=== PATIENT | female | born 1970 | race Native Hawaiian/Other Pacific Islander ===

== ENCOUNTER 2017-12-12 05:51 | Inpatient (IN) | payer OTHER ==
[2017-12-11 13:55] VITALS: BMI 20.5
[2017-12-12] MEDS ORDERED: Bupivacaine 0.25%-Epinephrine 1:200,000 (30 ml) Inj IJ ONE (07:27)
[2017-12-12] MEDS ORDERED: Sodium Chloride 0.9% 20 ML IV ONE (07:39)
[2017-12-12] MEDS ORDERED: Midazolam 2 MG/2 ML VIAL ONE (07:43)
[2017-12-12] MEDS ORDERED: Rocuronium 10 mg/ml (5 ml) ONE ×2 (07:43→09:05)
[2017-12-12] MEDS ORDERED: Propofol 10 mg/ml Inj (20 ML) ONE ×2 (07:43→08:43)
[2017-12-12] MEDS ORDERED: Lidocaine Hydrochloride 5 ML INJ ONE (07:43)
[2017-12-12] MEDS ORDERED: Succinylcholine Chloride 20 mg/ml Syr (5 ml) IV ONE (07:43)
[2017-12-12] MEDS ORDERED: Bupivacaine-Epi 0.5%-1:200,000 PF Inj IJ ONE (07:45)
[2017-12-12] MEDS: ceFAZolin 1 gm in NS 1 GM/100 ML BAG IVPB ONE ×2 (08:40→08:53)
[2017-12-12] MEDS ORDERED: Neostigmine Methylsulfate 3mg/3ml Syringe IV ONE (10:07)
--- NOTE | 2017-12-12 10:29 | PCM.SURG1 ---
Surgeon's Initial Post Op Note - Surgeon's Notes Surgeon: krista barber md Perfume Maker: saul franco Type of Anesthesia: General Endo, Local Pre-Operative Diagnosis: Chronic pelvic pain. Severe Dyparunia. Endomtrial polyps. Prolapse uterus Operative Findings: Endometriosis Stage III on posterior culdesac and pelvic side wall on left. Chronic pelvic pain. Severe Dyparunia. Endomtrial polyps. Prolapse uterus Post-Operative Diagnosis: Endometriosis Stage III. Chronic pelvic pain. Severe Dyparunia. Endomtrial polyps. Prolapse uterus Operation Performed: Total robotic hysterectomy bilateral salpingectomy. Uterosacroligament suspenssion. Excision of endometriosis. Lysis of adhesions Enterolysis. Diagnostic cystoscopy Specimen/Specimens Removed: Uterus, cervix and tubes and endometriosis Estimated Blood Loss: EBL {In ML}: 10 Blood Products Given: N/A Drains Used: No Drains Post-Op Condition: Good Date of Surgery/Procedure: 12/12/17 Time of Surgery/Procedure: 10:30
[2017-12-12] MEDS ORDERED: HYDROmorphone 0.5 mg/0.5 ml ISec IVP PRN (10:39)
--- NOTE | 2017-12-12 10:50 | PCM.OP ---
Operative Report - Operative Report Date of Surgery/Procedure: 12/12/17 Time of Surgery/Procedure: 10:47 Surgeon: Kiel Segovia MD Window Dresser: Ana JIMENES Anesthesia/Sedation: Gen with Et tube Pre-Operative Diagnosis: Chronic pelvic pain. Prolapse uterus. endometrial polyps. Abnormal uterine bleeding Post-Operative Diagnosis: Endometriosis Stage III. Chronic pelvic pain. Prolapse uterus. Endometrial polyps. Abnormal uterine bleeding. Pelvic adhesive disease Indication for Surgery: worsening pelvic pain and abnormal bleeding Operative Findings: significant peritoneal and bowel and bladder adhessions from prior C/S, right ovary adherent to pelvic side wall and anterior abdominal wall. normal left ovary, tubes significantly adherent to bowel and pelvic side wall. normal bladder anatomy and ureters efluxing urine freely. Procedure/Operation Description: 1. Total robotic hysterectomy bilateral salpingectomy. 2. Uterosacroligament suspenssion colpopexy. 3. Excision of endometriosis. 4. Enterolysis lyis of adhessions. 5. Diangostic cystoscopy. . DESCRIPTION OF OPERATION: This is a 47 years old female with symptomatic prolapse uterus, endometrial polyps, abnormal uterine bleeding, and urinary incontinence. The patient completed an extensive preoperative workup, which included an ultrasound, as well as a Pap smear, chemistry and hematology studies. The patient reported these symptoms and problems as debilitating, and adversely affecting her quality of life. Following a period of failed conservative management, and patient decision was made to proceed with a more invasive approach to address the above noted problems. A decision was finally made to proceed with a total robotic assisted hysterectomy, bilateral salpingectomy, and vaginal vault suspension. A detailed description of this robotic procedure was given to the patient, all indications, risks, benefits and alternative treatments were reviewed, and printed material was also given to the patient regarding robotic surgery. The patient elected to proceed with the proposed procedure fully understanding all the risks and benefits associated with this proposed robotic procedure. After proper consent was obtained from the patient was taken to the operating room, proper patient identification was completed. She was placed in dorsal lithotomy position; general anesthesia was induced without difficulty. Her legs were placed in adjustable Calin stirrups. Careful attention was placed to avoid hyper-flexion or hyper-rotation of the lower extremities at the hip and the knee joints. She was prepped and draped appropriately for robotic assisted hysterectomy and colposuspension. Liriano catheter was inserted under sterile conditions. A weighted speculum was placed in the vagina, anterior lip of cervix was grasped with a tenaculum, the cervix was mildly dilated and a V-care uterine manipulator was inserted through the cervix and secured. The weighted speculum and tenaculum were removed from the patient's vagina and attention was turned to the patient's abdomen. Local anesthetic solutions of 0.25% Marcaine with epinephrine were utilized to infiltrate the skin prior to all abdominal skin incisions. A total of 15 mL of 0.25% Marcaine was utilized throughout the procedure. While tenting the abdominal wall up, a Veress needle was inserted at a 45 degree angle. With CO2 insufflation, there was a drop in intraperitoneal pressure confirming correct placement. Insufflation was carried out to approximately 3 liters. A blunt robotic trocar and sleeve was introduced through the camera port in the midline, approximately 3 cm above the umbilicus. Then, using a 30-degree lens robotic scope, initial survey of the patient's abdomen revealed a bulky enlarged uterus, extensive pelvic and bowel adhesions throughout the pelvic cavity, adherent to fallopian tubes bilaterally , normal appearing ovaries. Multiple endometriosis lesions throughout the pelvic cavity closing destructive effect along the pelvic sidewall as well as the posterior cul-de-sac. Under direct visualization, 3 additional robotic ports were utilized for this procedure. The first one, approximately 5 cm superior to the superior iliac crest on the RIGHT, a second port was approximately 5 cm superior to the superior iliac crest on the LEFT, and a third one was approximately 8 cm RIGHT lateral of the camera port in the midline. All robotic ports were approximately 8 mm in length. An human resources executive assistant port was inserted approximately 8 cm LEFT lateral of the camera port, and the Versastep trocar and sleeve were introduced in the recommended fashion. A Veress and sheath were first introduced through a 1 cm incision, the Veress was removed and a trocar was introduced through the sheath and secured. Again, excellent visualization was noted confirming intraperitoneal placement. The placement of the trocars was all accomplished under careful and meticulous placement under direct visualization. Following the placement of all trocars, the da Anatoly robotic system was docked in a parallel side docking method without difficulty after the patient was placed in moderate Trendelenburg position and small bowel had been swept away out of the pelvis. The ureter was positively identified. The following instruments were utilized for this procedure: the bipolar cautery device, a monopolar mynor and finally a ProGrasp. Extensive and meticulous lysis of adhesions as well as lysis of bowel adhesions had to be completed prior to his hysterectomy. Pelvic anatomy was restored following extensive adhesions removal as well as release of tight bowel adhesions from the anterior abdominal wall as well as pelvic sidewall. Extensive bladder adhesions were also lysed. Multiple excision of endometriosis from the posterior cul-de-sac as well as the pelvic sidewall was completed utilizing sharp and blunt dissection, these lesions were labeled and sent to pathology. Due to the close proximity of these endometriosis anti-to descend study ureters, both ureters were explored following the opening of the retroperitoneum and exploring the ureters from the pelvic brim down towards the cervical uterine junction. Prior to the start of the hysterectomy, both ureters were visualized along the full course, peristalsis bilaterally. On the patient's right side, the utero-ovarian and the round ligaments were identified cauterized and transected, the broad ligament was divided all the way down to the utero cervical junction bladder flap was then created by transecting the visceroperitoneum over the bladder reflection. In a similar fashion, the left round ligament, utero-ovarian ligament and broad ligament were cauterized sealed and transected, taken down to the level of the cervical uterine junction. Uterine vessels on both sides were sealed and transected. The Uterosacral ligaments were sealed and transected. The monopolar mynor and PK were utilized to complete the colpotomy incision around the care vaginal ring. Excellent hemostasis was noted. The uterus, cervix, and fallopian tubes were delivered transvaginally through the colpotomy incision and sent to pathology for permanent analysis. The colpotomy incision was closed with 2-0 v LOC in a continuous fashion with excellent hemostasis. The vaginal vault suspension was achieved by suspending the vaginal cuff to the base of the uterosacral ligaments bilaterally. For uterosacral ligament suspension portion of the procedure, the ureters were once again identified to avoid possible compromise or kinking while suspending the vaginal vault. A 2-0 permanent suture material ( Troy-Kevon) was utilized to suspend the uterosacral ligaments from the base to the vaginal vault cuff incision including both anterior and posterior aspect of the colpotomy incision. Utilizing a 3-0 Monocryl suture, the peritoneum over the colpotomy incision and uterosacral ligaments was re-approximated in a continuous fashion. The pelvis and abdomen were irrigated copiously and cleared of all clots and debris. FloSeal as well as Interceed was applied over the incision sites. Excellent hemostasis was once again noted. All robotic and laparoscopic instruments removed under direct visualization. The robotic arms were undocked, and a da Anatoly robotic system was wheeled away from the patient's bedside. Both human resources executive assistant and camera ports were closed at the fascial layer utilizing a 0 Vicryl suture material in interrupted fashion. Pneumoperitoneum was reduced and all skin incisions were closed utilizing 4-0 Monocryl in a subcutaneous fashion. Dermabond was applied to all incisions. At the conclusion of this procedure, a diagnostic cystoscopy was completed. The Liriano catheter was removed; the bladder was distended with approximately 350 cc of normal saline. A 17 American 30 cystoscope was introduced through the urethra and a survey of the bladder anatomy was completed. The trigone, and the dome of the bladder appeared normal, both ureteral orifices appeared normal and were efluxing urine freely. The urethra appeared normal. A Liriano catheter was reinserted. Vaginal packing was inserted to be removed the next morning. Patient emerged from general anesthesia without difficulty, and was taken to recovery room in stable condition. Prior to incision the patient received antibiotics, prior to closure sponge lap and needle counts were correct x2. Estimated Blood Loss: 10 Blood Replaced: none Sponge/Instrument Count: count correct times 2 Drains: none Complications: none Specimen: Uterus, cervix and tubes. Endometriosis Discharge & Condition: as per criteria
[2017-12-12] MEDS ORDERED: Morphine 4 MG/ML VIAL IVP PRN (10:54)
[2017-12-12] MEDS ORDERED: Oxycodone/Acetaminophen 5/325 mg Tab PO PRN (10:54)
[2017-12-12] MEDS ORDERED: Sodium Chloride 0.9% 1,000 ML IV SCH (11:00)
[2017-12-12] MEDS ORDERED: ceFAZolin IV 2 gm in Dextrose 2 GM/50 ML BAG IVPB SCH (11:00)
[2017-12-12] MEDS ORDERED: Lactated Ringer's 1,000 ML IV ONE (12:30)
[2017-12-12] MEDS: ceFAZolin IV 2 gm in Dextrose 2 GM/50 ML BAG IVPB SCH (17:57)
[2017-12-13] MEDS: ceFAZolin IV 2 gm in Dextrose 2 GM/50 ML BAG IVPB SCH ×2 (00:46→08:13)
[2017-12-13 07:40] LABS: BLOOD UREA NITROGEN 6 mg/dL (7-17); GFR AFRICAN-AMERICAN > 60; GFR NON-AFRICAN AMERICAN > 60
[2017-12-13 07:43] LABS: HEMOGLOBIN 11.9 g/dL (11.0-16.0); MEAN CELL VOLUME 85.5 fL (81.0-99.0); MEAN CORPUSCULAR HEMOGLOBIN 28.5 pg (27.0-31.0); MEAN CORPUSCULAR HGB CONC 33.4 g/dL (33.0-37.0); MEAN PLATELET VOLUME 7.8 fL (7.2-11.7); RBC 4.15 Mil/uL (3.80-5.20); RED CELL DISTRIBUTION WIDTH 14.6 % (11.5-14.5); WHITE BLOOD COUNT 8.4 K/uL (4.8-10.8)
[2017-12-13 09:02] VITALS: BP 124/73; PULSE 62; RESP 18; TEMP 98.9; O2SAT 99
[2017-12-13] MEDS ORDERED: Potassium Chloride 20 mEq ER Tab PO SCH (13:45)
[2017-12-13] MEDS ORDERED: Potassium Chloride 20 mEq ER Tab PO ONE (14:10)
--- NOTE | 2017-12-13 16:39 | CP.PCM.PN ---
Subjective - Date & Time of Evaluation Date of Evaluation: 12/13/17 Time of Evaluation: 14:00 - Subjective Subjective: Patient states pain is controlled. +void +passing gas, good appetite. patient has been out of bed. Objective - Vital Signs/Intake and Output Vital Signs (last 24 hours): Temp Pulse Resp BP Pulse Ox 98.9 F 62 18 124/73 99 12/13/17 08:00 12/13/17 08:00 12/13/17 08:00 12/13/17 08:00 12/13/17 08:00 - Labs Labs: 12/13/17 07:02 12/13/17 07:02 - GI/Abdominal Exam Additional comments: abd soft, mildly distended. Incsions dry and intact abd binder intact calves sfot NT neg homans Assessment and Plan (1) Endometriosis Assessment & Plan: POD#1 s/p robotic hysterectomy -d/c home today as per Dr. Segovia pain medication keep incisions dry and clean f/u 2 weeks call for appt d/w Dr. Segovia, agrees with above Status: Acute (2) Chronic pelvic pain in female Status: Acute (3) Abnormal uterine bleeding (AUB) Status: Acute
== END 2017-12-13 15:53 | disposition home or self-care (01) | DRG 359 ==
LOC: C.SDS 05:51 → C.9S 11:31 → C.4M 11:46
PROVIDERS: ADMIT Obstetrics & Gynecology; ATTEND Obstetrics & Gynecology
PROC: 0UT7FZZ Resection of Bilateral Fallopian Tubes, Via Natural or Artificial Opening With Percutaneous Endoscopic Assistance (ICD-10-PCS; 2017-12-12)
PROC: 0DNW4ZZ Release Peritoneum, Percutaneous Endoscopic Approach (ICD-10-PCS; 2017-12-12)
PROC: 8E0W4CZ Robotic Assisted Procedure of Trunk Region, Percutaneous Endoscopic Approach (ICD-10-PCS; 2017-12-12)
PROC: 0TJB8ZZ Inspection of Bladder, Via Natural or Artificial Opening Endoscopic (ICD-10-PCS; 2017-12-12)
PROC: 0UT9FZZ Resection of Uterus, Via Natural or Artificial Opening With Percutaneous Endoscopic Assistance (ICD-10-PCS; principal; 2017-12-12 07:45)
DX: N84.1 Polyp of cervix uteri (principal); D25.9 Leiomyoma of uterus, unspecified; N73.6 Female pelvic peritoneal adhesions (postinfective); N93.9 Abnormal uterine and vaginal bleeding, unspecified; G89.29 Other chronic pain; N80.1 Endometriosis of ovary; N80.3 Endometriosis of pelvic peritoneum; N81.4 Uterovaginal prolapse, unspecified; Z68.20 Body mass index [BMI] 20.0-20.9, adult